=== PATIENT | male | born 1965 | race Caucasian/White ===

== ENCOUNTER 2017-04-27 04:34 | Emergency (ER) | payer BC ==
[2017-04-27 05:05] VITALS: TEMP 97.8; BMI 33.6
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
[2017-04-27] MEDS ORDERED: DIPHTH,PERTUSS(ACELL),TET 0.5 ML DISP.SYRIN IM ONE (06:06)
[2017-04-27] MEDS ORDERED: PENICILLIN V POTASSIUM 500 MG TABLET PO ONE (06:11)
[2017-04-27 06:30] VITALS: BP 141/91; PULSE 100
== END 2017-04-27 06:30 | disposition home or self-care (01) ==
LOC: JER 04:34
PROC: 3E0234Z Introduction of Serum, Toxoid and Vaccine into Muscle, Percutaneous Approach (ICD-10-PCS; principal; 2017-04-27)
PROC: 0CQ03ZZ Repair Upper Lip, Percutaneous Approach (ICD-10-PCS; 2017-04-27)
DX: S01.511A Laceration without foreign body of lip, initial encounter (principal); Y04.0XXA Assault by unarmed brawl or fight, initial encounter; Y93.89 Activity, other specified; Y92.59 Other trade areas as the place of occurrence of the external cause; Y99.8 Other external cause status
CPT/HCPCS: 90715; 99283-25

== ENCOUNTER 2017-05-06 16:19 | Emergency (ER) | payer BC ==
[2017-05-06 16:35] VITALS: BP 166/90; PULSE 90; TEMP 98.5; BMI 30.8
--- NOTE | 2017-05-06 16:35 | PDOC ---
Rapid Medical Evaluation Time Seen by Provider: 05/06/17 16:34 Medical Evaluation: Allergies Allergy/AdvReac Type Severity Reaction Status Date / Time No Known Drug Allergies Allergy Verified 04/27/17 04:52 05/06/17 16:34 I have performed a brief in-person evaluation of this patient. The patient presents with a chief complaint of: suture removal Pertinent physical exam findings: sutures to R lip I have ordered the following: nothing The patient will proceed to the ED for further evaluation.
--- NOTE | 2017-05-06 16:41 | PDOC ---
Suture Removal/Wound Check HPI - History of Present Illness Chief Complaint: Suture/Staple Removal(Here) Stated Complaint: SUTURE REMOVAL Time Seen by Provider: 05/06/17 16:34 History Source: Yes: Patient Treated at: [facility] Date of Last ED visit: 04/27/17 - Previous ED Treatment Type of procedure performed on last visit: Yes: Laceration Repair Tetanus Immunization: Yes: Up to Date Past History - Past Medical History Allergies/Adverse Reactions: Allergies Allergy/AdvReac Type Severity Reaction Status Date / Time No Known Drug Allergies Allergy Verified 04/27/17 04:52 Home Medications: Ambulatory Orders Glipizide [Glucotrol -] 10 mg PO BID@0700,1630 12/15/12 Lisinopril 1 tab PO DAILY #30 08/29/15 COPD: No Diabetes: Yes HTN: Yes - Suicide/Smoking/Psychosocial Hx Smoking Status: Yes Smoking History: Former smoker Have you smoked in the past 12 months: Yes Number of Cigarettes Smoked Daily: 3 If you are a former smoker, when did you quit?: 2 WKS AGO Information on smoking cessation initiated: No Hx Alcohol Use: No Drug/Substance Use Hx: No Suture Removal/Wound Check PE - Physical Exam Laceration/Wound Check Symptoms: denies: Pain, Fever, Chills, Redness Current Severity Level: None Maximum Severity Level: None Location of Laceration/Wound: right: Lip (well healing wound to R upper lip) *Review of Systems - Review of Systems Constitutional: No: Chills, Fever Medical Decision Making - Medical Decision Making 05/06/17 16:40 42-year-old male here for suture removal to lip. No pain, fever or chills. Patient well-appearing and stable with well-healing wound. 5 sutures removed without any complications. Patient discharged in stable condition 05/06/17 17:10 *DC/Admit/Observation/Transfer Diagnosis at time of Disposition: Visit for suture removal - Discharge Dispostion Disposition: HOME Condition at time of disposition: Good - Referrals - Patient Instructions Printed Discharge Instructions: DI for Suture Removal - Post Discharge Activity
== END 2017-05-06 17:13 | disposition home or self-care (01) ==
LOC: JERFT 16:19
DX: Z48.02 Encounter for removal of sutures (principal)
CPT/HCPCS: 99281-25

== ENCOUNTER 2017-05-24 17:01 | Emergency (ER) | payer BC ==
[2017-05-24 17:23] VITALS: BP 141/85; PULSE 126; TEMP 99.3; BMI 30.1
[2017-05-24] MEDS ORDERED: SODIUM CHLORIDE 0.9% 1000 ML INFUS.BAG IV ONE (17:41)
[2017-05-24 17:57] LABS: BASO % 0.2 % (0-2.0); HEMATOCRIT 45.2 % (35.4-49); HEMOGLOBIN 15.5 GM/dL (11.7-16.9); LYMPH % 4.3 % (8-40); MCH 30.2 pg (25.7-33.7); MCHC 34.3 g/dl (32.0-35.9); MEAN CELL VOLUME 88.2 fl (80-96); MEAN PLT VOLUME 8.6 fl (7.5-11.1); MONO % 3.5 % (3.8-10.2); PLATELET COUNT 186 K/MM3 (134-434); RBC 5.13 M/mm3 (4.00-5.60); RDW 12.8 % (11.9-15.9)
[2017-05-24 18:21] LABS: ALBUMIN 3.2 g/dl (3.4-5.0); ALK PHOS 66 U/L (45-117); ANION GAP 8 (8-16); BILIRUBIN,TOTAL 0.4 mg/dL (0.2-1.0); BLOOD UREA NITROGEN 25 mg/dL (7-18); CALCIUM 7.6 mg/dL (8.5-10.1); CHLORIDE 105 mmol/L (98-107); CO2 25 mmol/L (21-32); CREATININE 1.2 mg/dL (0.7-1.3); GLUCOSE,RANDOM 185 mg/dL (74-106); POTASSIUM 4.4 mmol/L (3.5-5.1); SGOT/AST 9 U/L (15-37); SGPT/ALT 20 U/L (12-78); SODIUM 138 mmol/L (136-145); TOT PROT 6.8 g/dl (6.4-8.2)
--- NOTE | 2017-05-24 18:55 | PDOC ---
History of Present Illness - General Chief Complaint: Lightheaded Stated Complaint: DIZZY Time Seen by Provider: 05/24/17 17:32 - History of Present Illness Initial Comments: 05/24/17 18:55 Patient is a 52 y.o. male with no PMH presents c/o generalized weakness, chills , nausea and intermittent cramping abdominal pain. Patient denies any subjective fevers, diarrhea/constipation, dysuria/hematuria and notes he has been tolerating PO intake. Patient states his last BM was this morning and was normal. Patient further denies chest pain and dyspnea. Past History - Past Medical History Allergies/Adverse Reactions: Allergies Allergy/AdvReac Type Severity Reaction Status Date / Time No Known Drug Allergies Allergy Verified 05/24/17 17:23 Home Medications: Ambulatory Orders Levofloxacin [Levaquin] 500 mg PO DAILY #7 tablet 05/24/17 Oseltamivir Phosphate [Tamiflu -] 75 mg PO DAILY #7 capsule 05/24/17 COPD: No Diabetes: Yes HTN: Yes - Suicide/Smoking/Psychosocial Hx Smoking Status: Yes Smoking History: Never smoked Have you smoked in the past 12 months: Yes Number of Cigarettes Smoked Daily: 3 If you are a former smoker, when did you quit?: 2 WKS AGO Information on smoking cessation initiated: No Hx Alcohol Use: No Drug/Substance Use Hx: No Review of Systems - Review of Systems Constitutional: Yes: Chills. No: Fever Respiratory: No: Shortness of Breath Cardiac (ROS): No: Chest Pain ABD/GI: Yes: Abdominal cramping. No: Constipated, Nausea : No: Burning, Dysuria *Physical Exam - Vital Signs Last Vital Signs Temp Pulse Resp BP Pulse Ox 99.3 F 126 H 20 141/85 97 05/24/17 17:20 05/24/17 17:20 05/24/17 17:20 05/24/17 17:20 05/24/17 17:20 - Physical Exam General Appearance: Yes: Nourished, Appropriately Dressed HEENT: positive: EOMI, JOSÉ LUIS Neck: positive: Trachea midline, Supple Respiratory/Chest: positive: Lungs Clear Cardiovascular: positive: S1, S2 Gastrointestinal/Abdominal: positive: Flat, Soft. negative: Distended, Guarding , Rebound, Tenderness Musculoskeletal: positive: Muscle Spasm. negative: CVA Tenderness (R), CVA Tenderness (L) Extremity: positive: Normal Inspection Integumentary: positive: Normal Color, Dry, Warm Neurologic: positive: Fully Oriented, Alert ED Treatment Course - LABORATORY CBC & Chemistry Diagram: 05/24/17 17:28 05/24/17 17:28 - ADDITIONAL ORDERS Additional order review: Laboratory Results 05/24/17 17:28 Sodium 138 Potassium 4.4 Chloride 105 Carbon Dioxide 25 Anion Gap 8 BUN 25 H Creatinine 1.2 D Creat Clearance w eGFR > 60 Random Glucose 185 H D Calcium 7.6 L Total Bilirubin 0.4 AST 9 L D ALT 20 D Alkaline Phosphatase 66 Total Protein 6.8 Albumin 3.2 L 05/24/17 17:45 Influenza Types A,B Antigen (OPAL) - Final Nasopharyngeal Swab - Final 05/24/17 17:28 RBC 5.13 MCV 88.2 MCHC 34.3 RDW 12.8 MPV 8.6 Neutrophils % 91.0 H D Lymphocytes % 4.3 L D Monocytes % 3.5 L Eosinophils % 1.0 Basophils % 0.2 - Medications Given in the ED: ED Medications Discontinued Medications Generic Name Dose Route Start Last Admin Trade Name Freq PRN Reason Stop Dose Admin Sodium Chloride 1,000 ml 05/24/17 17:41 05/24/17 17:55 Normal Saline - IV 05/24/17 17:42 1,000 ml ONCE ONE Administration Medical Decision Making - Medical Decision Making 05/24/17 19:12 Patient is a 52 y.o. male who presents with a constellation of symptoms consistent w/flu including weakness and abdominal cramping. Influenza A/B negative however this does not r/o H2N3. Will send Tamiflu to patient's pharmacy. Patient tolerating PO intake and ambulatory around unit. Will obtain CXR to r/o any acute cause of leukocytosis including pneumonia. Patient signed out to Dr. Gilman (Resident) and Dr. Flor (Attending). *DC/Admit/Observation/Transfer Diagnosis at time of Disposition: Influenza Abdominal pain Qualifiers: Abdominal location: unspecified location Qualified Code(s): R10.9 - Unspecified abdominal pain - Discharge Dispostion Disposition: HOME Condition at time of disposition: Stable - Prescriptions Prescriptions: Levofloxacin [Levaquin] 500 mg PO DAILY #7 tablet Oseltamivir Phosphate [Tamiflu -] 75 mg PO DAILY #7 capsule - Referrals Referrals: ON STAFF,NOT [Primary Care Provider] - - Patient Instructions Printed Discharge Instructions: DI for Influenza -- Adult Additional Instructions: You were seen in the ER for abdominal pain and flu-like symptoms. We did lab work and a chest x-ray, and a flu test that checks for two of the most common strains of flu, and everything was negative. We believe you have another strain of influenza. Please crop picker the Tamiflu (antiviral) and Levaquin (antibiotic) from your pharmacy and take both of them. Please follow up with your regular doctor, or you can return to the ER for any new or worsening symptoms. Print Language: MALAGASY - Post Discharge Activity
--- NOTE | 2017-05-24 19:16 | PDOC ---
*Physical Exam - Vital Signs Last Vital Signs Temp Pulse Resp BP Pulse Ox 99.3 F 126 H 20 141/85 97 05/24/17 17:20 05/24/17 17:20 05/24/17 17:20 05/24/17 17:20 05/24/17 17:20 05/24/17 19:14 Abdominal cramping, flu-like symptoms. Flu A and B negative here but there is mild WBC and we are awaiting CXR. Tamiflu sent to pharmacy d/t possibility for H2N3 ED Treatment Course - LABORATORY CBC & Chemistry Diagram: 05/24/17 17:28 05/24/17 17:28 - ADDITIONAL ORDERS Additional order review: Laboratory Results 05/24/17 17:28 Sodium 138 Potassium 4.4 Chloride 105 Carbon Dioxide 25 Anion Gap 8 BUN 25 H Creatinine 1.2 D Creat Clearance w eGFR > 60 Random Glucose 185 H D Calcium 7.6 L Total Bilirubin 0.4 AST 9 L D ALT 20 D Alkaline Phosphatase 66 Total Protein 6.8 Albumin 3.2 L 05/24/17 17:45 Influenza Types A,B Antigen (OPAL) - Final Nasopharyngeal Swab - Final 05/24/17 17:28 RBC 5.13 MCV 88.2 MCHC 34.3 RDW 12.8 MPV 8.6 Neutrophils % 91.0 H D Lymphocytes % 4.3 L D Monocytes % 3.5 L Eosinophils % 1.0 Basophils % 0.2 - Medications Given in the ED: ED Medications Discontinued Medications Generic Name Dose Route Start Last Admin Trade Name Freq PRN Reason Stop Dose Admin Sodium Chloride 1,000 ml 05/24/17 17:41 05/24/17 17:55 Normal Saline - IV 05/24/17 17:42 1,000 ml ONCE ONE Administration Medical Decision Making - Medical Decision Making 05/24/17 20:13 CXR appears without acute changes. Patient is appropriate for DC home with close OP followup. Return precautions discussed. *DC/Admit/Observation/Transfer Diagnosis at time of Disposition: Influenza Abdominal pain Qualifiers: Abdominal location: unspecified location Qualified Code(s): R10.9 - Unspecified abdominal pain - Discharge Dispostion Disposition: HOME Condition at time of disposition: Stable Admit: No - Prescriptions Prescriptions: Levofloxacin [Levaquin] 500 mg PO DAILY #7 tablet Oseltamivir Phosphate [Tamiflu -] 75 mg PO DAILY #7 capsule - Referrals Referrals: ON STAFF,NOT [Primary Care Provider] - - Patient Instructions Printed Discharge Instructions: DI for Influenza -- Adult Additional Instructions: You were seen in the ER for abdominal pain and flu-like symptoms. We did lab work and a chest x-ray, and a flu test that checks for two of the most common strains of flu, and everything was negative. We believe you have another strain of influenza. Please steel pickler the Tamiflu (antiviral) and Levaquin (antibiotic) from your pharmacy and take both of them. Please follow up with your regular doctor, or you can return to the ER for any new or worsening symptoms. Print Language: ROMANSH - Post Discharge Activity
== END 2017-05-24 21:32 | disposition home or self-care (01) ==
LOC: JER 17:01
DX: J11.1 Influenza due to unidentified influenza virus with other respiratory manifestations (principal); I10 Essential (primary) hypertension; E11.9 Type 2 diabetes mellitus without complications
CPT/HCPCS: 36415; 71046-TC; 80053; 85025; 87804; 99283-25

== ENCOUNTER 2017-08-06 17:27 | Emergency (ER) | payer BC ==
--- NOTE | 2017-08-06 17:41 | PDOC ---
Rapid Medical Evaluation Time Seen by Provider: 08/06/17 17:39 Medical Evaluation: Allergies Allergy/AdvReac Type Severity Reaction Status Date / Time No Known Drug Allergies Allergy Verified 05/24/17 17:23 08/06/17 17:39 I have performed a brief in-person evaluation of this patient. The patient presents with a chief complaint of: negative flu test yesterday, feeling sick for 4 days, fever Pertinent physical exam findings: well appearing I have ordered the following: nothing The patient will proceed to the ED for further evaluation. Discharge Disposition - Diagnosis Cough - Referrals - Patient Instructions - Post Discharge Activity
[2017-08-06 17:43] VITALS: BP 135/77; PULSE 101; TEMP 98.5; BMI 31.6
--- NOTE | 2017-08-06 18:21 | PDOC ---
History of Present Illness - General Chief Complaint: Weakness Stated Complaint: PAIN Time Seen by Provider: 08/06/17 17:39 History Source: Patient Exam Limitations: No Limitations - History of Present Illness Initial Comments: 08/06/17 19:30 52-year-old male complaining of generalized fatigue and subjective fever 3 days , and was seen by an urgent care clinic yesterday which he was told that he was influenza negative but was given Tamiflu along with Motrin for discharge. Patient has no complaints of headache, visual changes, sore throat, ear pain, chest pain, shortness of breath, abdominal pain, diarrhea, constipation, urinary complaints, lower extremity edema, or rash. Patient states history of diabetes but states his sugar this morning was 124. Patient states also has noted small papules scattered throughout his body that he states are not itchy or painful. Timing/Duration: other Severity: mild Associated Symptoms: reports: fever/chills, weakness Past History - Travel Traveled outside of the country in the last 30 days: No - Past Medical History Allergies/Adverse Reactions: Allergies Allergy/AdvReac Type Severity Reaction Status Date / Time No Known Drug Allergies Allergy Verified 08/06/17 17:40 Home Medications: Ambulatory Orders Amlodipine Besylate 10 mg PO ASDIR 08/06/17 Ezetimibe/Simvastatin [Vytorin 10-20 mg Tablet] 1 tab PO DAILY 08/06/17 Sitagliptin Phos/Metformin HCl [Janumet 50-1,000 mg Tablet] 1 each PO ASDIR 04/13 COPD: No DVT: No Dementia: No Diabetes: Yes HTN: Yes - Immunization History Immunization Up to Date: Yes - Suicide/Smoking/Psychosocial Hx Smoking Status: Yes Smoking History: Never smoked Have you smoked in the past 12 months: Yes Number of Cigarettes Smoked Daily: 3 If you are a former smoker, when did you quit?: 2 WKS AGO Information on smoking cessation initiated: No Hx Alcohol Use: No Drug/Substance Use Hx: No Substance Use Type: None Patient Lives Alone: No Lives with/in: spouse/SO Review of Systems - Review of Systems Able to Perform ROS?: No Constitutional: Yes: Chills, Fever, Weakness HEENTM: No: Symptoms Reported Respiratory: No: Symptoms reported Cardiac (ROS): No: Symptoms Reported ABD/GI: No: Symptoms Reported : No: Symptoms Reported Musculoskeletal: No: Symptoms Reported Integumentary: No: Symptoms Reported Neurological: No: Symptoms reported Endocrine: No: Symptoms Reported Hematologic/Lymphatic: No: Symptoms Reported *Physical Exam - Vital Signs Last Vital Signs Temp Pulse Resp BP Pulse Ox 98.5 F 101 H 18 135/77 96 08/06/17 17:40 08/06/17 17:40 08/06/17 17:40 08/06/17 17:40 08/06/17 17:40 - Physical Exam General Appearance: Yes: Nourished, Appropriately Dressed. No: Apparent Distress HEENT: positive: EOMI, JOSÉ LUIS, TMs Normal, Pharynx Normal (dry. thin whitish coatong to tongue) Neck: positive: Supple Respiratory/Chest: positive: Lungs Clear, Normal Breath Sounds. negative: Respiratory Distress, Accessory Muscle Use Cardiovascular: positive: Regular Rhythm, Regular Rate. negative: Murmur Gastrointestinal/Abdominal: positive: Soft. negative: Tenderness Integumentary: positive: Normal Color, Warm, Moist, Rash (noted small red papules with scattered pattern sparing soles and palm) Neurologic: positive: Motor Strength 5/5 (ambulatory) ED Treatment Course - LABORATORY CBC & Chemistry Diagram: 08/06/17 18:20 08/06/17 18:20 Medical Decision Making - Medical Decision Making 08/06/17 19:37 Patient here for evaluation generalized fatigue and subjective fever and chills and states was given Tamiflu yesterday by an urgent care clinic after testing negative for influenza. Patient states has been also taking Motrin as prescribed every 8 hours patient with history of hypertension diabetes but denies associated symptoms of hypertension or diabetes. Patient was ordered for CBC and CMP. If negative, patient recommended to hydrate himself rest and eat small frequent meals. *DC/Admit/Observation/Transfer Diagnosis at time of Disposition: Weakness - Discharge Dispostion Disposition: HOME Condition at time of disposition: Good - Referrals - Patient Instructions Printed Discharge Instructions: DI for Muscle Weakness Additional Instructions: Please eat small frequent meals and drink plenty of fluids. Check your sugar routinely and if you develop any chest pain, headache, dizziness or shortness of breath, please return to the ED. Otherwise follow up with a primary care physician as needed. - Post Discharge Activity
[2017-08-06 18:31] LABS: BASO % 0.8 % (0-2.0); HEMATOCRIT 40.2 % (35.4-49); HEMOGLOBIN 14.3 GM/dL (11.7-16.9); LYMPH % 23.4 % (8-40); MCH 31.2 pg (25.7-33.7); MCHC 35.4 g/dl (32.0-35.9); MEAN CELL VOLUME 88.1 fl (80-96); MEAN PLT VOLUME 7.9 fl (7.5-11.1); MONO % 9.6 % (3.8-10.2); NEUT % 66.2 % (42.8-82.8); PLATELET COUNT 160 K/MM3 (134-434); RBC 4.57 M/mm3 (4.00-5.60); RDW 12.6 % (11.9-15.9); WHITE BLOOD COUNT 5.3 K/mm3 (4.0-10.0)
[2017-08-06 19:19] LABS: ALBUMIN 3.4 g/dl (3.4-5.0); ANION GAP 7 (8-16); BLOOD UREA NITROGEN 16 mg/dL (7-18); CALCIUM 8.3 mg/dL (8.5-10.1); CHLORIDE 106 mmol/L (98-107); CO2 24 mmol/L (21-32); CREATININE 1.1 mg/dL (0.7-1.3); GLUCOSE,RANDOM 106 mg/dL (74-106); POTASSIUM 4.3 mmol/L (3.5-5.1); SGOT/AST 45 U/L (15-37); SGPT/ALT 49 U/L (12-78); SODIUM 137 mmol/L (136-145)
[2017-08-06 19:21] LABS: ALK PHOS 62 U/L (45-117); BILIRUBIN,TOTAL 0.4 mg/dL (0.2-1.0); TOT PROT 7.3 g/dl (6.4-8.2)
== END 2017-08-06 19:41 | disposition home or self-care (01) ==
LOC: JERFT 17:27
DX: R53.1 Weakness (principal); I10 Essential (primary) hypertension; E11.9 Type 2 diabetes mellitus without complications; Z79.84 Long term (current) use of oral hypoglycemic drugs
CPT/HCPCS: 36415; 80053; 85025; 99281-25

== ENCOUNTER 2022-12-23 20:19 | Inpatient (IN) | payer BC ==
[2022-12-23] MEDS ORDERED: ACETAMINOPHEN 500 MG TABLET (FP) PO ONE (22:40)
[2022-12-23] MEDS ORDERED: amLODIPine BESYLATE 10 MG TABLET (FP) PO ONE (22:41)
[2022-12-23] MEDS ORDERED: amLODIPine BESYLATE 10 MG TABLET (FP) ONE (22:43)
[2022-12-23] MEDS ORDERED: ACETAMINOPHEN 325 MG TABLET (FP) ONE (22:43)
[2022-12-23 22:59] LABS: EOS % 4.5 % (0-4.5); HEMATOCRIT 39.4 % (35.4-49); HEMOGLOBIN 13.5 GM/dL (11.7-16.9); LYMPH % 29.3 % (8-40); MCH 31.6 pg (25.7-33.7); MCHC 34.3 g/dl (32.0-35.9); MEAN PLT VOLUME 8.9 fl (7.5-11.1); MONO % 6.8 % (3.8-10.2); NEUT % 58.4 % (42.8-82.8); PLATELET COUNT 223 10^3/uL (134-434); RBC 4.28 M/mm3 (4.00-5.60); RDW 12.8 % (11.9-15.9); WHITE BLOOD COUNT 9.7 K/mm3 (4.0-10.0)
[2022-12-23 23:16] LABS: POTASSIUM 4.4 mmol/L (3.5-5.1)
[2022-12-23 23:18] LABS: ALBUMIN 2.8 g/dl (3.4-5.0); CALCIUM 8.4 mg/dL (8.5-10.1)
[2022-12-23 23:19] LABS: BLOOD UREA NITROGEN 27.4 mg/dL (7-18); MAGNESIUM 1.6 mg/dL (1.8-2.4)
[2022-12-23 23:21] LABS: PHOSPHOROUS 4.1 mg/dL (2.5-4.9)
[2022-12-23 23:22] LABS: CREATININE 2.3 mg/dL (0.55-1.3)
[2022-12-23 23:23] LABS: BILIRUBIN,TOTAL 0.2 mg/dL (0.2-1); TOT PROT 6.5 g/dl (6.4-8.2)
[2022-12-24] MEDS ORDERED: SODIUM CHLORIDE 0.9% 500 ML INFUS.BAG IV ONE (00:03)
[2022-12-24] MEDS ORDERED: MAGNESIUM 1GM/D5W - 1 GM/100 ML IVPB IVPB ONE (00:57)
[2022-12-24] MEDS ORDERED: MAGNESIUM 2GM/50ML STERILE WATER IVPB IVPB ONE (01:00)
[2022-12-24] MEDS ORDERED: hydrALAZINE HCL 20 MG/ML VIAL IVPUSH PRN (01:43)
[2022-12-24] MEDS ORDERED: hydrALAZINE HCL 20 MG/ML VIAL ONE (01:58)
[2022-12-24] MEDS ORDERED: amLODIPine BESYLATE 10 MG TABLET (FP) PO ONE (01:59)
[2022-12-24] MEDS ORDERED: hydrALAZINE HCL 20 MG/ML VIAL IVPUSH ONE (02:03)
[2022-12-24] MEDS ORDERED: amLODIPine BESYLATE 10 MG TABLET (FP) ONE (02:06)
[2022-12-24] MEDS ORDERED: MAGNESIUM SULF 50% (8.12 MEQ/2 ML-1 GM VIAL) IVPB ONE (03:21)
[2022-12-24] MEDS ORDERED: hydrALAZINE HCL 25 MG TABLET (FP) PO ONE (03:26)
[2022-12-24] MEDS ORDERED: hydrALAZINE HCL 25 MG TABLET (FP) PO SCH ×2 (03:27→06:00)
[2022-12-24] MEDS ORDERED: MAGNESIUM SULFATE IN WATER 2 GM/50 ML IVPB IVPB ONE (03:34)
[2022-12-24] MEDS: SODIUM CHLORIDE 1,000 ML IV SCH ×2 (03:43→13:57)
[2022-12-24] MEDS: hydrALAZINE HCL 25 MG TABLET (FP) PO SCH ×2 (06:11→13:56)
[2022-12-24 06:48] LABS: BASO % 0.8 % (0-2.0); EOS % 3.5 % (0-4.5); HEMATOCRIT 40.2 % (35.4-49); HEMOGLOBIN 13.6 GM/dL (11.7-16.9); LYMPH % 21.2 % (8-40); MCH 30.9 pg (25.7-33.7); MCHC 33.8 g/dl (32.0-35.9); MEAN CELL VOLUME 91.3 fl (80-96); MEAN PLT VOLUME 9.4 fl (7.5-11.1); MONO % 5.2 % (3.8-10.2); NEUT % 69.3 % (42.8-82.8); PLATELET COUNT 215 10^3/uL (134-434); RBC 4.41 M/mm3 (4.00-5.60); RDW 12.8 % (11.9-15.9); WHITE BLOOD COUNT 10.5 K/mm3 (4.0-10.0)
[2022-12-24] MEDS ORDERED: INSULIN SLIDING SCALE (NOVOLOG) 1 VIAL SQ SCH (07:00)
[2022-12-24 07:15] LABS: POTASSIUM 4.1 mmol/L (3.5-5.1)
[2022-12-24 07:19] LABS: BLOOD UREA NITROGEN 24.3 mg/dL (7-18); CALCIUM 7.8 mg/dL (8.5-10.1)
[2022-12-24 07:20] LABS: ALBUMIN 2.5 g/dl (3.4-5.0); MAGNESIUM 2.5 mg/dL (1.8-2.4)
[2022-12-24 07:24] LABS: BILIRUBIN,TOTAL 0.2 mg/dL (0.2-1); TOT PROT 5.8 g/dl (6.4-8.2)
[2022-12-24] MEDS: INSULIN SLIDING SCALE (NOVOLOG) 1 VIAL SQ SCH ×3 (07:43→16:40)
[2022-12-24] MEDS: HEPARIN NA (PORCINE) 5,000 UNITS/ML 1ML VIAL SQ SCH (10:34)
[2022-12-24 11:57] LABS: CHOLESTEROL 164 mg/dL (50-200)
[2022-12-24 11:59] LABS: LDL CHOLESTEROL (ONLY SJRH) 86 mg/dL (5-100)
[2022-12-24 12:00] LABS: HDL CHOLESTEROL 40 mg/dL (40-60)
[2022-12-24 12:20] VITALS: BMI 31.0
[2022-12-24] MEDS ORDERED: ACETAMINOPHEN 325 MG TABLET (FP) PO PRN (17:41)
[2022-12-24 21:49] LABS: EPI CELLS 4 /uL (0-25.1); HYALINE CASTS 0 /uL (0-3.1); URINE APPEARANCE CLEAR; URINE BACTERIA 6 /uL (0-1359); URINE BILIRUBIN NEGATIVE (NEGATIVE); URINE COLOR YELLOW; URINE GLUCOSE (UA) TRACE (NEGATIVE); URINE KETONE NEGATIVE (NEGATIVE); URINE LEUK ESTERASE NEGATIVE (NEGATIVE); URINE NITRITE NEGATIVE (NEGATIVE); URINE PROTEIN 3+ (NEGATIVE); URINE RBC 12 /uL (0-23.9); URINE UROBILINOGEN 0.2 mg/dL (0.2-1.0); URINE WBC 4 /uL (0-25.8)
[2022-12-24] MEDS ORDERED: ATORVASTATIN CA 40 MG TABLET (FP) PO SCH (22:00)
[2022-12-25] MEDS: CARVEDILOL 6.25 MG TABLET (FP) PO SCH ×2 (00:02→09:49)
[2022-12-25] MEDS: hydrALAZINE HCL 25 MG TABLET (FP) PO SCH ×2 (00:02→06:59)
[2022-12-25] MEDS: HEPARIN NA (PORCINE) 5,000 UNITS/ML 1ML VIAL SQ SCH ×2 (00:03→09:49)
[2022-12-25 06:04] VITALS: RESP 18
[2022-12-25] MEDS: INSULIN SLIDING SCALE (NOVOLOG) 1 VIAL SQ SCH ×2 (06:58→11:16)
[2022-12-25] MEDS ORDERED: amLODIPine BESYLATE 10 MG TABLET (FP) PO SCH (10:00)
[2022-12-25 10:42] VITALS: BP 177/83; PULSE 92; TEMP 98.1
[2022-12-25] MEDS ORDERED: INSULIN (NOVOLOG) ASPART 100 UNITS/ML 10ML VIAL ONE (11:10)
[2022-12-25 11:31] LABS: BASO % 1.3 % (0-2.0); EOS % 2.4 % (0-4.5); HEMATOCRIT 41.8 % (35.4-49); HEMOGLOBIN 14.7 GM/dL (11.7-16.9); LYMPH % 17.8 % (8-40); MCH 31.4 pg (25.7-33.7); MCHC 35.1 g/dl (32.0-35.9); MEAN CELL VOLUME 89.5 fl (80-96); MEAN PLT VOLUME 8.5 fl (7.5-11.1); NEUT % 72.5 % (42.8-82.8); PLATELET COUNT 218 10^3/uL (134-434); RBC 4.67 M/mm3 (4.00-5.60); RDW 12.8 % (11.9-15.9); WHITE BLOOD COUNT 8.3 K/mm3 (4.0-10.0)
[2022-12-25 11:56] LABS: ALBUMIN 2.6 g/dl (3.4-5.0)
[2022-12-25 11:57] LABS: BLOOD UREA NITROGEN 19.6 mg/dL (7-18)
[2022-12-25 11:59] LABS: CREATININE 2.1 mg/dL (0.55-1.3)
[2022-12-25 12:00] LABS: BILIRUBIN,TOTAL 0.2 mg/dL (0.2-1)
[2022-12-25 12:01] LABS: TOT PROT 6.3 g/dl (6.4-8.2)
== END 2022-12-25 14:25 | disposition home or self-care (01) | DRG 305 ==
LOC: JER 20:19 → JERBED 23:30 → OBSVTOIN 12-24 03:06 → JERBED 12-24 08:47 → J8W 12-24 09:03
PROVIDERS: ADMIT Internal Medicine; ATTEND Nurse Practitioner Family
DX: I16.0 Hypertensive urgency (principal); N17.9 Acute kidney failure, unspecified; E11.9 Type 2 diabetes mellitus without complications; E78.5 Hyperlipidemia, unspecified; E83.42 Hypomagnesemia; Z91.148 Patient's other noncompliance with medication regimen for other reason
CPT/HCPCS: 36415; 70450-TC; 71046-TC-FY; 76775-TC; 80053; 81003; 82465; 82550; 82570; 82962; 83036; 83718; 83721; 83735; 84100; 84156; 84478; 84484; 85025; 93005; 93010; 99285-25; G0378; J1644

== ENCOUNTER 2023-05-21 04:28 | Day surgery (SDC) | payer BC ==
[2023-05-14 15:08] VITALS: BMI 29.2
[2023-05-21] MEDS ORDERED: FENTANYL CITRATE/PF 50 MCG/ML VIAL ONE (10:20)
[2023-05-21] MEDS ORDERED: MIDAZOLAM HCL 2 MG/2 ML SINGLE DOSE VIAL ONE (10:20)
[2023-05-21] MEDS: SODIUM CHLORIDE 500 ML IV SCH (11:10)
[2023-05-21] MEDS ORDERED: hydrALAZINE HCL 20 MG/ML VIAL ONE (11:15)
[2023-05-21] MEDS: hydrALAZINE HCL 20 MG/ML VIAL IVPUSH ONE ×2 (11:19→11:33)
[2023-05-21 14:18] VITALS: RESP 18; TEMP 97.8
[2023-05-21 14:44] VITALS: BP 141/68; PULSE 71
== END 2023-05-21 15:04 | disposition home or self-care (01) ==
LOC: JRADIR 04:28
PROVIDERS: ATTEND Internal Medicine
PROC: 0TB13ZX Excision of Left Kidney, Percutaneous Approach, Diagnostic (ICD-10-PCS; principal; 2023-05-21)
DX: I12.9 Hypertensive chronic kidney disease with stage 1 through stage 4 chronic kidney disease, or unspecified chronic kidney disease (principal); N18.4 Chronic kidney disease, stage 4 (severe)
CPT/HCPCS: 50200; 77012-TC; 88300-TC; 88329